=== PATIENT | male | born 1950 | race Caucasian/White ===

== ENCOUNTER 2016-05-11 11:55 | Inpatient (IN) | payer MEDICARE ==
[~2016-05-11] VITALS: Ht 195.6 cm; Wt 127.6 kg
[~2016-05-11 11:55] MED LIST: BACITRACIN 50,000 UNIT ONE; BUPIVACAINE/PF-EPI 0.5% 1:200K ONE; CEFAZOLIN 1,000 MG ONE; DEXAMETHASONE 4 MG/ML, 1ML ONE; METOCLOPRAMIDE 5 MG/ML, 2ML ONE; ONDANSETRON 2MG/ML, 2ML ONE; PROPOFOL 10 MG/ML, 20ML ONE; PROPOFOL 10 MG/ML, 50ML ONE; ROCURONIUM 10 MG/ML ONE; THROMBIN 5,000 UNIT VIAL TP ONE
[2016-05-11] MEDS ORDERED: LIDOCAINE 1%, 2ML ONE (12:49)
[2016-05-11] MEDS ORDERED: ENAL5TAB PO (12:50)
[2016-05-11] MEDS ORDERED: HYDR25TA6 PO (12:50)
[2016-05-11] MEDS ORDERED: ALLO300T PO (12:50)
[2016-05-11] MEDS ORDERED: METF500T4 PO (12:50)
[2016-05-11] MEDS ORDERED: ASPI-496 PO (12:50)
[2016-05-11 13:08] VITALS: BP 153/87
[2016-05-11] MEDS ORDERED: HYDROmorphone 2 MG/ML, 1ML ONE ×2 (14:59→18:46)
[2016-05-11] MEDS ORDERED: HYDROmorphone 1 MG/ML, 1ML IV PRN ×2 (15:00→20:00)
[2016-05-11] MEDS ORDERED: HYDROmorphone 2 MG/ML, 1ML IV PRN (15:08)
[2016-05-11] MEDS ORDERED: MIDAZOLAM 1 MG/ML, 2ML ONE (16:01)
[2016-05-11] MEDS ORDERED: FENTANYL PF 250 MCG/5ML ONE (16:01)
[2016-05-11] MEDS ORDERED: REMIFENTANIL 2 MG ONE ×2 (17:02→17:15)
[2016-05-11] MEDS ORDERED: BUPIVACAINE/PF-EPI 0.5% 1:200K ONE (17:41)
[2016-05-11] MEDS ORDERED: ONDANSETRON 2MG/ML, 2ML IVPush PRN ×2 (19:30→20:00)
[2016-05-11] MEDS ORDERED: OXYcodone/APAP 5/325MG TABLET PO PRN (19:30)
[2016-05-11] MEDS ORDERED: HYDROcodone/APAP 10/325 MG TABLET PO PRN (19:30)
[2016-05-11] MEDS ORDERED: TIZANIDINE 4MG TABLET PO PRN (19:30)
[2016-05-11] MEDS ORDERED: BISACODYL 10 MG SUPP PR PRN (19:30)
[2016-05-11] MEDS ORDERED: HYDROmorphone PCA 30 MG/30 ML IV PRN (19:30)
[2016-05-11] MEDS ORDERED: MAGNESIUM HYDROXIDE 8%, 30ML UDC PO PRN (19:30)
[2016-05-11] MEDS ORDERED: PHARMACY MAY ADJ FOR RENAL FX MC PRN (19:30)
[2016-05-11] MEDS ORDERED: PROMETHAZINE 25 MG/ML, 1ML IM PRN (19:30)
[2016-05-11] MEDS ORDERED: HYDROmorphone PCA 30 MG/30 ML ONE (19:51)
[2016-05-11] MEDS ORDERED: MEPERIDINE/PF 25MG/0.5ML IVPush PRN (20:00)
[2016-05-11] MEDS ORDERED: hydrALAzine 20 MG/ML, 1ML IV PRN (20:00)
[2016-05-11] MEDS ORDERED: LABETALOL 5MG/ML, 20ML IV PRN (20:00)
[2016-05-11] MEDS ORDERED: OXYcodone 5 MG/5 ML ORAL.SOL UDC PO PRN (20:00)
[2016-05-11] MEDS ORDERED: ACETAMINOPHEN 325 MG TABLET PO PRN (20:00)
[2016-05-11] MEDS ORDERED: LABETALOL 5MG/ML, 20ML ONE (20:08)
[2016-05-11] MEDS ORDERED: FENTANYL PF 100 MCG/2ML ONE (20:08)
[2016-05-11] MEDS: FENTANYL PF 100 MCG/2ML IV PRN ×2 (20:15→20:25)
[2016-05-11] MEDS: metFORMIN 500 MG TABLET PO SCH (21:50)
[2016-05-11] MEDS: NS + 20MEQ KCL 1,000 ML IV SCH (21:54)
[2016-05-11] MEDS: INSULIN REGULAR 100 UNITS/ML, 3ML VIAL SQ-INSULIN SCH (22:51)
[2016-05-12 00:06] VITALS: BP 145/86
[2016-05-12] MEDS: SODIUM CHLORIDE FLUSH 10ML SYR IVF SCH ×3 (01:19→21:37)
[2016-05-12] MEDS: CEFAZOLIN PMX 1GM/50ML 50 ML IVPB SCH ×2 (01:20→08:47)
[2016-05-12 02:10] VITALS: BP 135/73
[2016-05-12 07:05] VITALS: BP 130/88
[2016-05-12] MEDS: NS + 20MEQ KCL 1,000 ML IV SCH ×2 (07:30→16:56)
[2016-05-12] MEDS: INSULIN REGULAR 100 UNITS/ML, 3ML VIAL SQ-INSULIN SCH ×4 (08:03→21:56)
[2016-05-12] MEDS: ENALAPRIL 5MG TABLET PO SCH (08:04)
[2016-05-12] MEDS: metFORMIN 500 MG TABLET PO SCH ×2 (08:04→21:37)
[2016-05-12] MEDS: ALLOPURINOL 300 MG TABLET PO SCH (08:05)
[2016-05-12] MEDS: HYDROCHLOROTHIAZIDE 25 MG TABLET PO SCH (08:05)
[2016-05-12] MEDS: SENNA/DOCUSATE TABLET PO SCH (08:05)
[2016-05-12 08:21] VITALS: BP 138/86
[2016-05-12 13:33] VITALS: BP 104/55
[2016-05-12] MEDS ORDERED: ACETAMINOPHEN 325 MG TABLET ONE (18:06)
[2016-05-12] MEDS ORDERED: ACETAMINOPHEN 325 MG TABLET PO PRN (18:30)
[2016-05-12 20:10] VITALS: BP 119/68
[2016-05-13] MEDS: NS + 20MEQ KCL 1,000 ML IV SCH ×2 (03:30→13:17)
[2016-05-13 03:37] VITALS: BP 104/59
[2016-05-13] MEDS: INSULIN REGULAR 100 UNITS/ML, 3ML VIAL SQ-INSULIN SCH ×2 (06:11→11:45)
[2016-05-13 06:33] VITALS: BP 145/84
[2016-05-13] MEDS ORDERED: TRAM50TA2 PO (08:48)
[2016-05-13] MEDS ORDERED: TIZA4TAB PO (08:48)
[2016-05-13 09:03] VITALS: BP 145/84
[2016-05-13] MEDS: metFORMIN 500 MG TABLET PO SCH (09:03)
[2016-05-13] MEDS: ALLOPURINOL 300 MG TABLET PO SCH (09:04)
[2016-05-13] MEDS: HYDROCHLOROTHIAZIDE 25 MG TABLET PO SCH (09:04)
[2016-05-13] MEDS: ENALAPRIL 5MG TABLET PO SCH (09:04)
[2016-05-13] MEDS: SENNA/DOCUSATE TABLET PO SCH (09:04)
[2016-05-13] MEDS: SODIUM CHLORIDE FLUSH 10ML SYR IVF SCH (10:28)
[2016-05-13 13:11] VITALS: BP 157/95
== END 2016-05-13 14:06 | disposition home or self-care (01) | DRG 520 ==
LOC: OUT 11:55 → EDIP 19:16 → 4NOR 20:56 → OBSVTOIN 05-12 16:17 → DCLOUNGE 05-13 13:51
PROVIDERS: ADMIT Neurological Surgery; ATTEND Neurological Surgery
PROC: 01NB0ZZ Release Lumbar Nerve, Open Approach (ICD-10-PCS; principal; 2016-05-12)
PROC: 0SB20ZZ Excision of Lumbar Vertebral Disc, Open Approach (ICD-10-PCS; 2016-05-12)
DX: M48.06 Spinal stenosis, lumbar region (principal); I10 Essential (primary) hypertension; Z93.3 Colostomy status; Z88.5 Allergy status to narcotic agent; Z82.49 Family history of ischemic heart disease and other diseases of the circulatory system
CPT/HCPCS: 72100; 82962; G0378; J0690; J1100; J1170; J1815; J2250; J2405; J2704; J3010; J3480; J2765